=== PATIENT | male | born 1955 | race Caucasian/White ===

== ENCOUNTER 2017-12-18 10:37 | Outpatient (CLI) | payer BC ==
--- NOTE | 2017-12-18 16:23 | EKG ---
Test Reason : Blood Pressure : / mmHG Vent. Rate : 066 BPM Atrial Rate : 066 BPM P-R Int : 104 ms QRS Dur : 094 ms QT Int : 402 ms P-R-T Axes : 007 016 006 degrees QTc Int : 421 ms Sinus rhythm with short AL Otherwise normal ECG Confirmed by PAIGE ALAMO ([id number]) on 12/18/2017 4:22:50 PM Referred By: SHELLIE Confirmed By:PAIGE ALAMO
== END 2017-12-18 10:38 | disposition home or self-care (01) ==
LOC: LABBT 10:37
PROVIDERS: ATTEND Neurological Surgery
DX: Z01.810 Encounter for preprocedural cardiovascular examination (principal); M51.26 Other intervertebral disc displacement, lumbar region
CPT/HCPCS: 93005; 93010

== ENCOUNTER 2017-12-25 06:45 | Day surgery (SDC) | payer BC ==
[2017-12-18 10:52] VITALS: BMI 42.0
--- NOTE | 2017-12-24 22:52 | HP ---
HISTORY OF PRESENT ILLNESS: Mr. Crane is a pleasant 62-year-old man presented for roughly one month about left lower extremity L3 pains and now this includes numbness and tingling in the same distribu tion. He does report what sounds like neurogenic claudication, but this also onset after his current pain did, he has significant bilateral lower extremity edema, which may play a role in some of his c laudication symptoms and potentially represents a vascular component of this, all this onset after mo ving garage furniture to move his car and before . He has had 1 epidural steroid injection whic h was dull the pain, but it still persists. MRI from [facility] reveals severe le ft foraminal stenosis due to a disk herniation thus far lateral at L3 into the foramen additionally. Of note, he has severe central canal stenosis, L4-L5 that could also be additional factor here. PAST MEDICAL HISTORY: Significant for pyloric stenosis, osteoarthritis, back and leg pains, kidney s tones, hyperlipidemia, hypertension. CURRENT MEDICATIONS: Simvastatin, atenolol, amlodipine, hydrochlorothiazide, gabapentin, diclofenac. ALLERGIES: No known drug allergies. PAST SURGICAL HISTORY: Unspecified. PHYSICAL EXAMINATION: GENERAL: Patient is alert and oriented x3. NEUROLOGIC: Gait is slowed and significantly antalgic. EXTREMITIES: Lower extremity: Motor exam is normal, bilateral lower extremities. He does have 3+ p itting edema of the bilateral lower extremities up to the level of the knee. ASSESSMENT: Lumbar radiculopathy. PLAN: Dr. Swartz met with the patient, reviewed imaging, and ultimately advocated for a left L3 marina inotomy, diskectomy. He explained to the patient the risks, benefits, and alternatives of the proced ure. Patient expressed understanding and would like to move forward with surgery as discussed. I do believe the patient is mentally competent and capable of making medical decisions for himself and we will move forward surgery as planned. Dusty Duron PA-C dictating for Dr. Swartz.
[2017-12-25] MEDS ORDERED: CEFAZOLIN/Water 2 GM/20 ML SYRINGE ONE ×3 (07:52→12:27)
[2017-12-25] MEDS ORDERED: Fentanyl 250 MCG/5 ML VIAL ONE (08:26)
[2017-12-25] MEDS ORDERED: Midazolam HCl 2 mg/2 ml Vial ONE (08:26)
[2017-12-25] MEDS ORDERED: Ondansetron PF 4 MG/2 ML Vial ONE ×2 (08:26→15:31)
[2017-12-25] MEDS ORDERED: Bupivacaine HCl 0.5%/Epinephrine 1:200,000/PF 30 ml Vial ONE (08:28)
[2017-12-25] MEDS ORDERED: Tamsulosin HCl 0.4 MG CAP ONE (10:26)
--- NOTE | 2017-12-25 11:59 | OP ---
DATE OF PROCEDURE: 12/25/2017 SURGEON: Richie Swartz M.D. OCCUPATIONAL HEALTH PHYSIOTHERAPIST: Toby Duron PA-C. INDICATION: Pain. DIAGNOSIS: Lumbar radiculopathy. PROCEDURE: Left L3 facetectomy and discectomy. ANESTHESIA: General. TECHNIQUE: The patient was brought into the operating room and placed under general anesthesia. She was flipped from a supine to a prone position on the operating room table. A linear incision was pl anned over L3. After prepping and draping and after an appropriate operative pause, the incision was created. The soft tissues were swept left of midline. After placing a self-retaining retractor, a high-speed cutting drill bit was used to perform a laminectomy along L3 on the left. The medial half of the facet joint was also removed. The exiting L3 nerve root was identified. Protuberant disk ma terial as well as ligament were found within the foramen. An annulotomy was performed in the disk sp jeimy and the foramen where a significant amount of disc material was removed. At the completion of th e procedure, the exiting L3 nerve root was well-decompressed. The wound was irrigated. Hemostasis w as maintained throughout. The wound was then closed in anatomic layers and a pressure dressing was a pplied. There were no known procedural complications.
[2017-12-25] MEDS ORDERED: Lidocaine 1% PF 5 ML VIAL ONE (15:31)
[2017-12-25] MEDS ORDERED: PROPOFOL 200 MG/20 ML VIAL ONE (15:31)
[2017-12-25] MEDS ORDERED: Glycopyrrolate 0.2 MG/ML 5 ML SYRINGE ONE (15:31)
[2017-12-25] MEDS ORDERED: Dexamethasone 20 MG/5 ML VIAL ONE (15:31)
[2017-12-25] MEDS ORDERED: ePHEDrine/0.9% NaCl/PF SYRINGE 50 mg/10 ml ONE (15:31)
== END 2017-12-25 12:50 | disposition home or self-care (01) ==
LOC: SDC 06:45
PROVIDERS: ATTEND Neurological Surgery
PROC: 01NB0ZZ Release Lumbar Nerve, Open Approach (ICD-10-PCS; principal; 2017-12-25)
PROC: 0SB20ZZ Excision of Lumbar Vertebral Disc, Open Approach (ICD-10-PCS; principal; 2017-12-25)
DX: M51.16 Intervertebral disc disorders with radiculopathy, lumbar region (principal); M48.061 Spinal stenosis, lumbar region without neurogenic claudication; M19.90 Unspecified osteoarthritis, unspecified site; E78.5 Hyperlipidemia, unspecified; I10 Essential (primary) hypertension; Z79.82 Long term (current) use of aspirin; Z79.899 Other long term (current) drug therapy
CPT/HCPCS: 76001; J0670; J1100; J2001; J2250; J2405; J2704; J3010